=== PATIENT | male | born 1965 | race Caucasian/White ===

== ENCOUNTER 2017-03-25 04:32 | Emergency (ER) | payer OTHER ==
[2017-03-25] MEDS ORDERED: Aspirin Low Dose CHEW TAB* 81 MG PO ONE (04:38)
[2017-03-25] MEDS ORDERED: NS 0.9% 1000 ML* 1,000 ML IV ONE (04:38)
[2017-03-25] MEDS ORDERED: Morphine INJ* 4 MG/ML 1 ML SYRINGE IV ONE (04:38)
[2017-03-25 05:01] LABS: Hematocrit 43 % (42-52); Hemoglobin 14.7 g/dl (14.0-18.0); Mean Corpuscular HGB Conc 34 g/dl (31-36); Mean Corpuscular Hemoglobin 32 pg (27-31); Mean Corpuscular Volume 94 fL (80-94); Mean Platelet Volume 8 um3 (7.4-10.4); Red Blood Count 4.62 10^6/ul (4.0-5.4); Red Cell Distribution Width 13 % (10.5-15); White Blood Count 6.7 10^3/ul (3.5-10.8)
[2017-03-25 05:12] LABS: Albumin 4.7 g/dL (3.2-5.2); BUN/Creatinine Ratio 14.7 (8-20); Calcium 9.4 mg/dL (8.6-10.3); Globulin 3.3 g/dL (2-4); Potassium 3.7 mmol/L (3.5-5.0); Total Bilirubin 0.4 mg/dL (0.2-1.0)
--- NOTE | 2017-03-25 05:15 | ED ---
nhan Manuel Timothy, scribed for Keyon Mascorro MD on 03/25/17 at 0505 . HPI Chest Pain - HPI Summary HPI Summary: Glen Lorenzo is a 51 yo male presenting to [facility] with 10/10 left sided chest pain since 0300 this morning, radiating through his shoulder and left arm. He states at first he thought he just slept on his side wrong. His pain is aggravated by deep breaths, and alleviated to some extent by holding his left arm close to his side. Pt sates the pain increased throughout yesterday, to the point that he drove straight to the emergency department. He self-medicated with aleve x2 with no relief. He denies any Hx of similar Sx. His MHx includes tobacco use. - History of Current Complaint Time Seen by Provider: 03/25/17 04:32 Hx Obtained From: Patient Onset/Duration: Started Hours Ago, Still Present Time of Onset: 03:00 Timing: Constant Initial Severity: Worse Since: - now Current Severity: Moderate Pain Intensity: 10 Pain Scale Used: 0-10 Numeric Chest Pain Location: Left Lateral Chest Pain Radiates To:: Shoulder, Arm - left Aggravating Factor(s): Movement, Deep Breaths Alleviating Factor(s): Position - hold left arm close to body Associated Signs and Symptoms: Positive: Chest Pain - Allergy/Home Medications Allergies/Adverse Reactions: Allergies Allergy/AdvReac Type Severity Reaction Status Date / Time No Known Allergies Allergy Verified 05/09/15 11:23 PMH/Surg Hx/FS Hx/Imm Hx Infectious Disease History: No Infectious Disease History: Denies: Traveled Outside the [place] in Last 30 Days - Family History Known Family History: Positive: Cardiac Disease, Hypertension, Diabetes - Social History Alcohol Use: Daily Substance Use Type: Reports: None Hx Tobacco Use: Yes Smoking Status (MU): Current Every Day Smoker Type: Cigarettes Amount Used/How Often: less than a ppd Review of Systems Constitutional: Negative Eyes: Negative ENT: Negative Positive: Chest Pain Respiratory: Negative Gastrointestinal: Negative Genitourinary: Negative Musculoskeletal: Negative Skin: Negative Neurological: Negative Psychological: Normal All Other Systems Reviewed And Are Negative: Yes Physical Exam Triage Information Reviewed: Yes Vital Signs On Initial Exam: Initial Vitals Temp Pulse Resp BP Pulse Ox 97.3 F 96 24 145/97 99 03/25/17 04:47 03/25/17 04:47 03/25/17 04:47 03/25/17 04:47 03/25/17 04:47 Vital Signs Reviewed: Yes Appearance: Positive: Pain Distress - mod discomfort, Thin Skin: Positive: Warm Eyes: Positive: FRANCI ENT: Positive: Hearing grossly normal Neck: Positive: Supple, Nontender Respiratory/Lung Sounds: Positive: Clear to Auscultation, Breath Sounds Present Cardiovascular: Positive: RRR Abdomen Description: Positive: Nontender, Soft Bowel Sounds: Positive: Present Musculoskeletal: Positive: Strength/ROM Intact Neurological: Positive: Sensory/Motor Intact, Alert, Oriented to Person Place, Time Psychiatric: Positive: Affect/Mood Appropriate Diagnostics - Vital Signs Vital Signs Temp Pulse Resp BP Pulse Ox 03/25/17 04:47 97.3 F 96 24 145/97 99 - Laboratory Lab Results: Lab Results 03/25/17 03/25/17 03/25/17 Range/Units 04:42 04:42 04:42 WBC 6.7 (3.5-10.8) 10^3/ul RBC 4.62 (4.0-5.4) 10^6/ul Hgb 14.7 (14.0-18.0) g/dl Hct 43 (42-52) % MCV 94 (80-94) fL MCH 32 H (27-31) pg MCHC 34 (31-36) g/dl RDW 13 (10.5-15) % Plt Count 195 (150-450) 10^3/ul MPV 8 (7.4-10.4) um3 Neut % (Auto) 51.7 (38-83) % Lymph % (Auto) 31.6 (25-47) % [place] % (Auto) 9.9 H (1-9) % Eos % (Auto) 5.5 (0-6) % Baso % (Auto) 1.3 (0-2) % Absolute Neuts (auto) 3.5 (1.5-7.7) 10^3/ul Absolute Lymphs (auto) 2.1 (1.0-4.8) 10^3/ul Absolute Monos (auto) 0.7 (0-0.8) 10^3/ul Absolute Eos (auto) 0.4 (0-0.6) 10^3/ul Absolute Basos (auto) 0.1 (0-0.2) 10^3/ul Absolute Nucleated RBC 0.01 10^3/ul Nucleated RBC % 0.1 D-Dimer, Quantitative < 200 (Less Than 230) ng/mL Sodium 129 L (133-145) mmol/L Potassium 3.7 (3.5-5.0) mmol/L Chloride 97 L (101-111) mmol/L Carbon Dioxide 19 L (22-32) mmol/L Anion Gap 13 H (2-11) mmol/L BUN 15 (6-24) mg/dL Creatinine 1.02 (0.67-1.17) mg/dL Est GFR ( Amer) 99.0 (>60) Est GFR (Non-Af Amer) 77.0 (>60) BUN/Creatinine Ratio 14.7 (8-20) Glucose 101 H (70-100) mg/dL Lactic Acid (0.5-2.0) mmol/L Calcium 9.4 (8.6-10.3) mg/dL Magnesium 2.0 (1.9-2.7) mg/dL Total Bilirubin 0.40 (0.2-1.0) mg/dL AST 29 (13-39) U/L ALT 24 (7-52) U/L Alkaline Phosphatase 71 (34-104) U/L Troponin I 0.00 (<0.04) ng/mL Total Protein 8.0 (6.4-8.9) g/dL Albumin 4.7 (3.2-5.2) g/dL Globulin 3.3 (2-4) g/dL Albumin/Globulin Ratio 1.4 (1-3) 03/25/17 Range/Units 04:42 WBC (3.5-10.8) 10^3/ul RBC (4.0-5.4) 10^6/ul Hgb (14.0-18.0) g/dl Hct (42-52) % MCV (80-94) fL MCH (27-31) pg MCHC (31-36) g/dl RDW (10.5-15) % Plt Count (150-450) 10^3/ul MPV (7.4-10.4) um3 Neut % (Auto) (38-83) % Lymph % (Auto) (25-47) % [place] % (Auto) (1-9) % Eos % (Auto) (0-6) % Baso % (Auto) (0-2) % Absolute Neuts (auto) (1.5-7.7) 10^3/ul Absolute Lymphs (auto) (1.0-4.8) 10^3/ul Absolute Monos (auto) (0-0.8) 10^3/ul Absolute Eos (auto) (0-0.6) 10^3/ul Absolute Basos (auto) (0-0.2) 10^3/ul Absolute Nucleated RBC 10^3/ul Nucleated RBC % D-Dimer, Quantitative (Less Than 230) ng/mL Sodium (133-145) mmol/L Potassium (3.5-5.0) mmol/L Chloride (101-111) mmol/L Carbon Dioxide (22-32) mmol/L Anion Gap (2-11) mmol/L BUN (6-24) mg/dL Creatinine (0.67-1.17) mg/dL Est GFR ( Amer) (>60) Est GFR (Non-Af Amer) (>60) BUN/Creatinine Ratio (8-20) Glucose (70-100) mg/dL Lactic Acid 3.6 H* (0.5-2.0) mmol/L Calcium (8.6-10.3) mg/dL Magnesium (1.9-2.7) mg/dL Total Bilirubin (0.2-1.0) mg/dL AST (13-39) U/L ALT (7-52) U/L Alkaline Phosphatase (34-104) U/L Troponin I (<0.04) ng/mL Total Protein (6.4-8.9) g/dL Albumin (3.2-5.2) g/dL Globulin (2-4) g/dL Albumin/Globulin Ratio (1-3) Result Diagrams: 03/25/17 04:42 03/25/17 04:42 Lab Statement: Any lab studies that have been ordered have been reviewed, and results considered in the medical decision making process. - Radiology CXR Xray Interpretation: No Acute Changes - No acute disease Radiology Interpretation Completed By: ED Physician - EKG 0436 Cardiac Rate: : Tachycardia - 101 BPM EKG Interpretation: NSR @ 101 BPM, normal EKG. Chest Pain Course/Dx - Course Assessment/Plan: Glen Lorenzo is a 51 yo male presenting to [facility] with 10/10 CP radiating to his left shoulder and left arm since 0300 this morning. In the ED course he reseived ASA, morphine for pain management, and IV fluids. His EKG suggests a normal EKG. His CXR suggests no acute disease. He will be signed out to Dr. Perez at 0700 pending further lab results. - Diagnoses Provider Diagnoses: Chest pain Discharge - Discharge Plan Condition: Stable Disposition: HOME Discharge Disposition Comment: signed out to Dr. Perez pending further lab results. Patient Education Materials: Chest Pain (ED) Referrals: [facility] [place] [facility] [Outside] The documentation as recorded by the nhan conroy Timothy accurately reflects the service I personally performed and the decisions made by me, Keyon Mascorro MD.
[2017-03-25 06:29] LABS: Benzodiazepine Urine Screen None Detected (None Detect)
--- NOTE | 2017-03-25 07:56 | RAD ---
Indication: Chest pain. Single frontal view of the chest performed at 0440 hours was reviewed. No prior study is available for comparison. No mediastinal shift is noted. Heart is of normal size and configuration. Lung aguilera appear clear. IMPRESSION: NO ACTIVE CARDIOPULMONARY DISEASE IS NOTED.
[2017-03-25 09:04] VITALS: BP 129/93
--- NOTE | 2017-03-25 11:17 | ED ---
IAndrea Billy, scribed for Regis Perez MD on 03/25/17 at 1115 . Progress - Progress Note Progress Note: Signed out by Dr. Mascorro. Second troponin is negative. As such, as per Dr. Mascorro, the patient can be discharged home to follow up with his PCP. Course/Dx - Diagnoses Provider Diagnoses: Chest pain Discharge - Discharge Plan Condition: Stable Disposition: HOME Patient Education Materials: Chest Pain (ED) Referrals: [facility] [Outside] The documentation as recorded by the Andrea conroy Billy accurately reflects the service I personally performed and the decisions made by Chris reynolds Walter, MD.
== END 2017-03-25 09:05 | disposition home or self-care (01) ==
LOC: ED 04:32
DX: R07.9 Chest pain, unspecified (principal)
CPT/HCPCS: 36415; 71010; 80053; 80307; 83605; 83735; 84484; 85025; 85379; 93005; 96374; 99284; A9270-GY; J2270

== ENCOUNTER → 2019-05-12 07:37 | Emergency (ER) | payer SELFPAY ==
[~2019-05-12 07:37] MED LIST: Albuterol 2.5 MG/3 ML NEB.SOL* (0.083%) INH ONE; LORazepam INJ* 2 MG/ML 1 ML VIAL IV PUSH ONE; Lorazepam PYXIS KEY PRN; NS 0.9% 1000 ML** 1,000 ML IV ONE; predniSONE TAB* 20 MG PO ONE
--- NOTE | 2019-05-12 07:46 | ED ---
HPI Chest Pain - HPI Summary HPI Summary: This pt is a 53 y/o male presenting to [facility] c/o chest pain and SOB today. Pt reports first he began to experience chest pain around 20:30 last night. He notes that at about 02:00 his symptoms began to worsen and it was difficult to breathe. Pt describes chest pain on the left anterior chest radiating into his esophagus. He currently states "it feels like I can't breathe." Pt has had chest pain like this in the past about 2 years ago. He had a stress test last year and was told he had a "very strong heart." He does not take any medications. Pt is a current smoker. - History of Current Complaint Hx Obtained From: Patient Onset/Duration: Started Hours Ago, Still Present, Worse Since - 02:00 Timing: Lasting Hours Current Severity: Severe Pain Intensity: 10 Pain Scale Used: 0-10 Numeric Chest Pain Location: Left Anterior Chest Pain Radiates: Yes Chest Pain Radiates To:: Other - esophagus Character: Dyspnea at Rest Aggravating Factor(s): Nothing Alleviating Factor(s): Nothing Associated Signs and Symptoms: Positive: Chest Pain, Shortness of Breath. Negative: Fever, Chills - Allergy/Home Medications Allergies/Adverse Reactions: Allergies Allergy/AdvReac Type Severity Reaction Status Date / Time ibuprofen Allergy Nausea And Verified 05/12/19 07:45 Vomiting PMH/Surg Hx/FS Hx/Imm Hx Endocrine/Hematology History: Denies: Hx Diabetes Cardiovascular History: Denies: Hx Myocardial Infarction Musculoskeletal History: Reports: Hx of Fracture(s) - Right patella - Family History Known Family History: Positive: Cardiac Disease - Grandmother with ND, Hypertension, Diabetes - Mother Family History: Mother with skin CA. Father with throat CA. Grandfather with prostate CA. Grandmother with lung CA. - Social History Alcohol Use: Daily Substance Use Type: Reports: None Substance Use Comment - Amount & Last Used: weekly, last used Thursday 03/22 Hx Tobacco Use: Yes Smoking Status (MU): Current Every Day Smoker Type: Cigarettes Amount Used/How Often: less than a ppd Review of Systems Negative: Fever Positive: Chest Pain Positive: Shortness Of Breath All Other Systems Reviewed And Are Negative: Yes Physical Exam - Summary Physical Exam Summary: Appearance: Very anxious appearing man, hyperventilating on the stretcher, Well- nourished Skin: Warm, dry, no obvious rash Eyes: sclera anicteric, no conjunctival pallor ENT: mucous membranes moist, pharynx appears normal Neck: Supple, nontender Respiratory: Difficult to stop patient to make strenuous noises but accounting for that the lungs sound clear Cardiovascular: Normal S1, S2. No murmurs. Normal distal pulses in tibial and radial bilaterally. Abdomen: Soft, nontender, normal active bowel sounds present Musculoskeletal: Normal, Strength/ROM Intact Neurological: A&Ox3, awake and alert, mentation is normal, speech is fluent and appropriate Psychiatric: affect is normal, does not appear anxious or depressed Triage Information Reviewed: Yes Vital Signs On Initial Exam: Initial Vitals Temp Pulse Resp BP Pulse Ox 99.4 F 94 24 177/100 100 05/12/19 07:44 05/12/19 07:44 05/12/19 07:44 05/12/19 07:44 05/12/19 07:44 Vital Signs Reviewed: Yes Diagnostics - Laboratory Result Diagrams: 05/12/19 07:50 05/12/19 07:50 Lab Statement: Any lab studies that have been ordered have been reviewed, and results considered in the medical decision making process. - Radiology Chest XR Radiology Interpretation Completed By: ED Physician - No acute process, Radiologist Summary of Radiographic Findings: IMPRESSION: No evidence for active cardiopulmonary disease. Dr. Washington has reviewed this report. - EKG 07:43 Cardiac Rate: NL - at 90 bpm EKG Rhythm: Sinus Rhythm Summary of EKG Findings: NSR at 90 bpm, P waves, QRS complex, and T waves are within normal limits, T waves and intervals are normal, no ischemic changes. This is a normal EKG. Re-Evaluation - Re-Evaluation First Eval Re-Evaluation Time: 09:04 Change: Improved Comment: Pt is doing much better. His lungs are clear. He is no longer in respiratory distress. Chest Pain Course/Dx - Course Assessment/Plan: Pt is a 53 y/o male presenting to [facility] c/o chest pain and SOB today. Pt reports first he began to experience chest pain around 20:30 last night. He notes that at about 02:00 his symptoms began to worsen and it was difficult to breathe. Blood work was obtained. VBG shows pCO2 of 30, O2 saturation of 41.4 %, base excess -0.3. Chest XR shows no acute process. EKG shows a NSR at 90 bpm. In the ED course the pt was given IV fluids, Ativan, albuterol breathing treatment, prednisone. Upon re-evaluation pt is feeling much better, lungs are clear, and he is no longer in respiratory distress. Pt will be discharged home with follow up from [facility] as soon as possible. He was given prescriptions for albuterol inhaler, azithromycin, prednisone. - Diagnoses Provider Diagnoses: COPD exacerbation Discharge - Sign-Out/Discharge Documenting (check all that apply): Patient Departure - Discharge home Patient Received Moderate/Deep Sedation with Procedure: No - Discharge Plan Condition: Improved Disposition: HOME Prescriptions: Albuterol HFA INHALER* [Ventolin HFA Inhaler*] 1 - 2 puff INH Q4H PRN #1 mdi PRN Reason: Sob/Wheezing Azithromycin TAB* [Zithromax TAB (Z-ADILENE) 250 mg #6 tabs] 2 tab PO .TODAY, THEN 1 DAILY #1 adilene predniSONE TAB* [Deltasone 20 MG TAB*] 40 mg PO DAILY 5 Days #10 tab Patient Education Materials: COPD (Chronic Obstructive Pulmonary Disease) (ED) Referrals: [facility] [Outside] - As Soon As Possible - Attestation Statements Document Initiated by Scribe: Yes Documenting Scribe: Malinda Agarwal Provider For Whom Scribe is Documenting (Include Credential): Cisco Washington MD Scribe Attestation: Malinda Manuel, scribed for Cisco Washington MD on 05/12/19 at 1002. Status of Scribe Document: Ready
[2019-05-12 08:20] LABS: ABS Basophils 0.1 10^3/ul (0-0.2); ABS Eosinophils 0.1 10^3/ul (0-0.6); ABS Monocytes 0.6 10^3/ul (0-0.8); ABS Neutrophils 6.7 10^3/ul (1.5-7.7); Eosinophil % 0.7 %; Hematocrit 38 % (42-52); Hemoglobin 13.5 g/dL (14.0-18.0); Lymphocyte % 12.2 %; Mean Corpuscular HGB Conc 35 g/dL (31-36); Mean Corpuscular Hemoglobin 34 pg (27-31); Mean Corpuscular Volume 95 fL (80-94); Mean Platelet Volume 7.5 fL (7.4-10.4); Nucleated Red Blood Cells % 0.1; Platelet Count 240 10^3/uL (150-450); Red Blood Count 4.01 10^6 /uL (4.18-5.48); Red Cell Distribution Width 13 % (10-15); White Blood Count 8.5 10^3/uL (3.5-10.8)
[2019-05-12 08:26] LABS: Albumin 4.5 g/dL (3.2-5.2); Albumin/Globulin Ratio 1.5 (1-3); BUN/Creatinine Ratio 10.4 (8-20); Calcium 9.7 mg/dL (8.6-10.3); EGFR African American 127.9 (>60); EGFR Non-African American 105.7 (>60); Globulin 3.1 g/dL (2-4); Potassium 3.9 mmol/L (3.5-5.0); Total Bilirubin 0.5 mg/dL (0.2-1.0); Total Protein 7.6 g/dL (6.4-8.9)
[2019-05-12 10:02] VITALS: BP 142/90
== END | disposition home or self-care (01) ==
LOC: ED 07:37
DX: J44.1 Chronic obstructive pulmonary disease with (acute) exacerbation (principal); F17.210 Nicotine dependence, cigarettes, uncomplicated; Z88.8 Allergy status to other drugs, medicaments and biological substances
CPT/HCPCS: 36415; 71045; 80053; 82803; 84484; 85025; 85379; 93005; 96361; 96374; 99283